=== PATIENT | female | born 1990 | race Caucasian/White ===

== ENCOUNTER 2017-09-01 17:21 | Emergency (ER) | payer OTHER ==
[~2017-09-01] VITALS: Ht 162.6 cm; Wt 56.0 kg
[~2017-09-01 17:21] MED LIST: TRAM50 PO; ZOFR4TAB3 SL
[2017-09-01 17:34] VITALS: BP 141/63; PULSE 76; RESP 17; TEMP 97.8; O2SAT 99
--- NOTE | 2017-09-01 17:58 | PD ---
HPI Chief Complaint: Laceration/Skin Injury Time Seen by Provider: 17:38 Travel History International Travel<30 days: No Contact w/Intl Traveler<30days: No Traveled to known affect area: No History of Present Illness HPI 27-year-old female presents to the emergency department for evaluation of laceration to her left anterior wrist that occurred just prior to arrival. Patient arrived via EMS. She states that she was cleaning dishes when a bowl broke, cutting her left wrist. She does not believe her tetanus immunization is up-to-date. Patient denies any other injury. She is right-handed. She denies . Movement of the hands and wrist worsen the pain. Keeping the wrist still will help alleviate the pain. Moderate severity. PFSH Past Medical History Diminished Hearing: No ?: Not LMP: 08/05/17 : 3 Para: 3 Miscarriage: 0 : 0 Past Surgical History Tonsillectomy: Yes Other Surgery: Yes (sinus sx) Social History Alcohol Use: Yes (social) Tobacco Use: Yes (5 cigs daily) Substance Use: No (hx of ) Allergies-Medications (Allergen,Severity, Reaction): Coded Allergies: No Known Allergies (Verified Adverse Reaction, Unknown, 09/01/17) Reported Meds & Prescriptions Reported Meds & Active Scripts Active No Active Prescriptions or Reported Medications Review of Systems Except as stated in HPI: all other systems reviewed are Neg Physical Exam Narrative GENERAL: Well-nourished, well-developed female patient, afebrile. SKIN: Focused skin assessment warm/dry. Patient has a 3 cm laceration to the left volar wrist with bleeding controlled. HEAD: Normocephalic. Atraumatic. EYES: No scleral icterus. No injection or drainage. NECK: Supple, trachea midline. No JVD or lymphadenopathy. CARDIOVASCULAR: Regular rate and rhythm without murmurs, gallops, or rubs. Left radial pulses 2+. RESPIRATORY: Breath sounds equal bilaterally. No accessory muscle use. Lungs sounds are clear to auscultation. GASTROINTESTINAL: Abdomen soft, non-tender, nondistended. MUSCULOSKELETAL: No cyanosis, or edema. Patient has 5/5 strength in all digits of the left hand. She can touch each finger to her thumb without difficulty. She can make a fist and extend all digits without problem. BACK: Nontender without obvious deformity. No CVA tenderness. Data Data Last Documented VS Vital Signs Date Time Temp Pulse Resp B/P (MAP) Pulse Ox O2 Delivery O2 Flow Rate FiO2 09/01/17 17:35 76 17 09/01/17 17:34 97.8 141/63 (89) 99 Orders Orders Wrist, Complete ([id number]) (09/01/17 ) Tetanus/Diphtheria Tox Adult (Tetanus/Di (09/01/17 18:00) Lidocai-Epi 1%-1:100,000 Inj (Xylocaine- (09/01/17 18:00) Ketorolac Inj (Toradol Inj) (09/01/17 18:15) MDM Medical Decision Making Medical Screen Exam Complete: Yes Emergency Medical Condition: Yes Medical Record Reviewed: Yes Interpretation(s) Last Impressions Wrist X-Ray 09/01/17 0000 Signed Impressions: Service Date/Time: Friday, September 01, 2017 18:20 - CONCLUSION: No fracture or radiopaque foreign body of the left wrist. Peter Cummings MD Differential Diagnosis Laceration versus foreign body versus tendon laceration Narrative Course 27-year-old female presents to the emergency department for evaluation of laceration to her left anterior wrist that occurred just prior to arrival while washing dishes. X-ray of the left wrist is ordered to rule out foreign body. Patient gives verbal consent for laceration repair. Tetanus immunization is updated. X-ray of the left wrist shows no fracture or radiopaque foreign body. Laceration is repaired. Patient discharged prescription for Keflex for prophylaxis. She verbalizes agreement. Patient is instructed on proper wound care. The patient was discharged in stable condition with instructions, including return instructions and follow up instructions. Procedures Procedure Narrative LACERATION LOCATION: Left wrist LENGTH: 3 cm NUMBER OF STITCHES/RONNY: 5 simple interrupted sutures REPAIR: The area of the laceration was prepped with Betadine and sterilely draped. The laceration was infiltrated with 1% lidocaine with epinephrine. The wound was copiously irrigated and explored without evidence of foreign body, tendon injury or neurovascular injury. The wound was closed using 4-0 Prolene. This was a single layer repair. A sterile dressing was applied. The patient was advised to keep the dressing clean and dry. Patient tolerated the procedure well. Diagnosis Primary Impression: Wrist laceration Qualified Codes: S61.512A - Laceration without foreign body of left wrist, initial encounter Referrals: Primary Care Physician call for appointment Patient Instructions: Care For Your Stitches (ED), General Instructions, Laceration (ED) Additional Instructions: Clean laceration twice daily with soap and water and apply [id number] antibiotic ointment. Keep clean and dry. No swimming or hot tubs until laceration is healed. Suture removal in 7-10 days. You may follow up with your primary care physician or return to the emergency department for this. Return to the emergency department for any acute worsening of symptoms. Med/Other Pt SpecificInfo: Prescription(s) given Scripts Cephalexin (Keflex) 500 Mg Capsule 500 MG PO TID for Infection for 5 Days, CAP 0 Refills Prov: Liliam Bravo 09/01/17 Disposition: 01 DISCHARGE HOME Condition: Stable Liliam Bravo Sep 01, 2017 17:58
[2017-09-01] MEDS ORDERED: TETANUS/DIPHTHERIA TOXOID ADULT 0.5 ML VIAL IM ONE (18:00)
[2017-09-01] MEDS ORDERED: LIDOCAINE 1%/EPINEPHrine 1:100,000 SOLN 20 ML VIAL INFIL ONE (18:00)
[2017-09-01] MEDS ORDERED: KETOROLAC TROMETHAMINE 60 MG/2 ML (IM) VIAL IM ONE (18:15)
--- NOTE | 2017-09-01 18:37 | RADRPT ---
EXAM DATE/TIME: 09/01/2017 18:20 [facility] COMPARISON: No previous studies available for comparison. INDICATIONS : Left wrist laceration. MEDICAL HISTORY : None. SURGICAL HISTORY : Tonsillectomy. ENCOUNTER: Initial ACUITY: 1 day PAIN SCORE: 6/10 LOCATION: Left upper extremity FINDINGS: Bones of the left wrist are intact and normally aligned. Some bandaging is seen of the volar soft tis sues. No other radiopaque foreign body seen. CONCLUSION: No fracture or radiopaque foreign body of the left wrist. Peter Cummings MD on September 01, 2017 at 18:35 Board Certified Radiologist. This report was verified electronically.
--- NOTE | 2017-09-01 18:53 | PD ---
Physical Exam Date Seen by Provider: Sep 01, 2017 Narrative Patient presents with a laceration to the left wrist Data Data Last Documented VS Vital Signs Date Time Temp Pulse Resp B/P (MAP) Pulse Ox O2 Delivery O2 Flow Rate FiO2 09/01/17 17:35 76 17 09/01/17 17:34 97.8 141/63 (89) 99 Orders Orders Wrist, Complete ([id number]) (09/01/17 ) Tetanus/Diphtheria Tox Adult (Tetanus/Di (09/01/17 18:00) Lidocai-Epi 1%-1:100,000 Inj (Xylocaine- (09/01/17 18:00) Ketorolac Inj (Toradol Inj) (09/01/17 18:15) MDM Supervised Visit with AURELIANO: Yes Narrative Course I, Dr. Dodd, have reviewed the advance practice practitioner's documentation and am in agreement, met with the patient face to face, made the diagnosis, and the medical decision making was done by me. *My assessment and Findings: She has about a 3 cm laceration on the flexor compartment of the left wrist. Bleeding is controlled. X-ray was negative for foreign body. Please see Liliam Bravo NP's note for laboratory and radiology results, final diagnosis and disposition Scripts No Active Prescriptions or Reported Meds Carmen Dodd MD Sep 01, 2017 18:53
[2017-09-01] MEDS ORDERED: CEPH-460 PO (18:54)
[2017-09-01 19:11] VITALS: BP 120/83; TEMP 98
== END 2017-09-01 19:12 | disposition home or self-care (01) ==
LOC: NEPD 17:21
DX: S61.512A Laceration without foreign body of left wrist, initial encounter (principal); W45.8XXA Other foreign body or object entering through skin, initial encounter; Y93.G1 Activity, food preparation and clean up; Z23 Encounter for immunization
CPT/HCPCS: 12002; 73110; 90471; 90714; 96372; 99284; J1885